=== PATIENT | male | born 1980 | race Hispanic/Latino ===

== ENCOUNTER 2023-07-24 10:33 | Inpatient (IN) | payer OTHER ==
[2023-07-24] MEDS ORDERED: FAMOTIDINE 20 MG/2 ML VIAL IV ONE (11:42)
[2023-07-24] MEDS ORDERED: NA CHLORIDE 0.9% 1,000 ML ONE (11:42)
[2023-07-24] MEDS ORDERED: ONDANSETRON 4 MG/2 ML VIAL ONE (11:42)
[2023-07-24 11:55] LABS: Albumin 4.1 g/dL (3.4-5.0); Bilirubin Total 1.2 mg/dL (0.2-1.0); Potassium 3.6 mEq/L (3.5-5.1); Protein, Total 8.6 g/dL (6.4-8.2)
[2023-07-24 12:24] LABS: Absolute Lymphocytes (CBC) 1.3 K/uL (0.7-4.9); Hematocrit 47.3 % (39.6-49.0); Lymphocytes % 11.3 % (15.3-44.8); MCV 86.2 fL (80-100); MPV 10.9 fL (7.6-11.3); RBC Red Blood Cell Count 5.49 M/uL (4.33-5.43)
--- NOTE | 2023-07-24 12:47 | RAD REPORT ---
EXAM DESCRIPTION: CT - Abdomen Pelvis W Contrast - 07/24/2023 12:06 pm CLINICAL HISTORY: ABD PAIN COMPARISON: No comparisons TECHNIQUE: Thin cut axial CT imaging of the abdomen and pelvis was performed following intravenous a dministration of 75 mL Isovue 300. Multiplanar reformats were generated and reviewed. All CT scans are performed using dose optimization technique as appropriate and may include automated exposure control or mA/KV adjustment according to patient size. FINDINGS: No suspicious findings in the lung bases. The liver, spleen, adrenal glands, and pancreas show no suspicious findings. Gallbladder and biliary tree are also without suspicious finding. Symmetric renal function is seen with no hydronephrosis or suspicious renal mass. Long segments of fluid-filled mildly distended small bowel loops throughout the central and lower abd omen. Some short segments of small bowel demonstrate mild mucosal hyperenhancement and minimal thicke fernanda, particularly along the distal ileum. The terminal ileum is not distended, but also demonstrates mild mucosal hyperenhancement. There is smooth tapering of the dilated segments with no clear transi tion point. Fluid filling of the colon is also noted. No free air, free fluid or inflammatory strandi ng. No hernia, mass or bulky lymphadenopathy. The urinary bladder is decompressed limiting evaluation . No suspicious bony findings. IMPRESSION: Fluid filling throughout small and large bowel loops with mild distention and segmental mild mucosal hyperenhancement and wall prominence of the small bowel. Findings suggest infectious/inf lammatory enterocolitis.
[2023-07-24 13:15] LABS: Platelets 31 thou/uL (152-406)
[2023-07-24 13:16] LABS: Blood Morphology Comment NOT SEEN (NOT SEEN); Platelet Estimate DECR; White Blood Cell Scan OK (OK)
[2023-07-24] MEDS ORDERED: METRONIDAZOLE 500mg IVPB 500 MG/100 ML BAG IV ONE (13:19)
[2023-07-24] MEDS ORDERED: CEFTRIAXONE 1000 MG/VIAL ONE (13:19)
--- NOTE | 2023-07-24 13:44 | EDPHYS ---
Physician Documentation [facility] Name: Lucas Yates Age: 42 yrs Sex: Male : 1980 Arrival Date: 07/24/2023 Time: 10:33 Bed 3 Private MD: ED Physician Tabby Mcginnis HPI: 07/24 12:54 This 42 yrs old Male presents to ER via Ambulatory with complaints of Diarrhea ci - NAUSEA. 12:54 Patient is a 42-year-old male PMH thrombocytopenia who presents to the ED with chief ci complaint of generalized abdominal pain, nausea, vomiting and diarrhea that began last night. Patient reports he ate hot dogs at [facility] a few days ago and thinks he has food poisoning. Reports whatever he eats comes right through him. He has had multiple episodes of liquid stools, no hematochezia or melena. He has been nauseated but no vomiting. Denies fever, chills, abdominal surgeries. Denies EtOH, denies recreational drugs.. Historical: - Allergies: 10:45 No Known Allergies; hb - Home Meds: 10:45 None [Active]; hb - PMHx: 10:45 None; hb - PSHx: 10:45 Knee - Right; hb - Immunization history:: Adult Immunizations up to date. - Social history:: Smoking status: Patient denies any tobacco usage or history of. ROS: 12:54 Cardiovascular: Negative for chest pain, edema, palpitations, ci 12:54 Respiratory: Negative for cough, shortness of breath, sputum production, wheezing, 12:54 Abdomen/GI: Positive for abdominal pain, nausea, vomiting, and diarrhea, abdominal cramps, Negative for hematemesis, black/tarry stool, rectal pain, Exam: 12:56 Constitutional: This is a well developed, well nourished patient who is awake, alert, ci and in no acute distress. Head/Face: Normocephalic, atraumatic. Eyes: Pupils equal round and reactive to light, extra-ocular motions intact. Lids and lashes normal. Conjunctiva and sclera are non-icteric and not injected. Cornea within normal limits. Periorbital areas with no swelling, redness, or edema. ENT: Nares patent. No nasal discharge, no septal abnormalities noted. Tympanic membranes are normal and external auditory canals are clear. Oropharynx with no redness, swelling, or masses, exudates, or evidence of obstruction, uvula midline. Mucous membranes moist. Neck: Trachea midline, no thyromegaly or masses palpated, and no cervical lymphadenopathy. Supple, full range of motion without nuchal rigidity, or vertebral point tenderness. No Meningismus. Chest/axilla: Normal chest wall appearance and motion. Nontender with no deformity. No lesions are appreciated. Cardiovascular: Regular rate and rhythm with a normal S1 and S2. No gallops, murmurs, or rubs. Normal PMI, no JVD. No pulse deficits. Respiratory: Lungs have equal breath sounds bilaterally, clear to auscultation and percussion. No rales, rhonchi or wheezes noted. No increased work of breathing, no retractions or nasal flaring. 12:56 Back: No spinal tenderness. No costovertebral tenderness. Full range of motion. Skin: Warm, dry with normal turgor. Normal color with no rashes, no lesions, and no evidence of cellulitis. MS/ Extremity: Pulses equal, no cyanosis. Neurovascular intact. Full, normal range of motion. Neuro: Awake and alert, GCS 15, oriented to person, place, time, and situation. Cranial nerves II-XII grossly intact. Motor strength 5/5 in all extremities. Sensory grossly intact. Cerebellar exam normal. Normal gait. Psych: Awake, alert, with orientation to person, place and time. Behavior, mood, and affect are within normal limits. 12:56 Abdomen/GI: Inspection: Bowel sounds: Palpation: soft, moderate abdominal tenderness, in all quadrants, rebound tenderness, is not appreciated, voluntary guarding, involuntary guarding, no appreciated organomegaly, Vital Signs: 10:44 BP 127 / 91; Pulse 129; Resp 16; Temp 98.5(TE); Pulse Ox 98% on R/A; Weight 87.09 kg; hb Height 5 ft. 7 in. ; Pain 8/10; 11:35 BP 119 / 73; Pulse 106; Resp 16; Pulse Ox 97% on R/A; Pain 0/10; tm6 12:31 BP 127 / 85; Pulse 100; Pulse Ox 100% on R/A; tm6 10:44 Body Mass Index 30.07 (87.09 kg, 170.18 cm) hb 10:44 Pain Scale: Adult hb 11:35 Pain Scale: Adult tm6 MDM: 10:57 Patient medically screened. ci 12:56 Differential diagnosis: Nonspecific abd pain, gastritis, pancreatitis, diverticulitis, ci viral gastroenteritis. Data reviewed: vital signs, nurses notes. 13:39 ED course: Labs remarkable for ROSA ISELA with creatinine of 2, unknown baseline, patient ci denies history of kidney disease. Patient reports a history of thrombocytopenia, lab reports his platelets have been clumping, repeat CBC pending. CT abdomen concerning for colitis, will start on Rocephin and Flagyl. Discussed case with hospitalist who accepted patient for admission.. 07/24 11:16 Order name: CBC with Diff; Complete Time: 13:36 ci 07/24 12:58 Interpretation: WBC 11.40. ci 07/24 11:16 Order name: CMP; Complete Time: 12:06 ci 07/24 12:59 Interpretation: Abnormal: CRE 2.09; NA 133. ci 07/24 11:16 Order name: Lipase; Complete Time: 12:06 ci 07/24 12:06 Interpretation: Within normal limits. ci 07/24 12:29 Order name: CBC Smear Scan; Complete Time: 13:36 EDMS 07/24 13:40 Order name: PT-INR; Complete Time: 15:00 la1 07/24 11:16 Order name: CT Abd/Pelvis - IV Contrast Only; Complete Time: 12:58 ci 07/24 12:59 Interpretation: Abnormal: Per Radiologist's finding(s): IMPRESSION: Fluid filling ci throughout small and large bowel loops with mild distention and segmental mild mucosal hyperenhancement and wall prominence of the small bowel. Findings suggest infectious/inflammatory enterocolitis. 07/24 11:16 Order name: IV Saline Lock; Complete Time: 11:34 ci 07/24 11:16 Order name: Labs collected and sent; Complete Time: 11:34 ci 07/24 11:46 Order name: Labs - recollect needed: recollect cbc / big clot in tube/ per Mi; eb Complete Time: 12:19 07/24 12:45 Order name: Labs - recollect needed: recollect blue and lavender/ on heel warmer per eb Mi to verify findings; Complete Time: 13:14 Administered Medications: 11:34 Drug: NS 0.9% IV 1000 ml IV at 1 bolus Per protocol; 1000 mL bolus Route: IV; Rate: 1 tm6 bolus; Site: right forearm; 11:34 Drug: Famotidine IVP 20 mg IVP once; dilute with 10 mL 0.9% NaCl; give over 2 minutes tm6 Route: IVP; Site: right forearm; 11:34 Drug: Ondansetron IVP 4 mg IVP once; over 2 minutes Route: IVP; Site: right forearm; tm6 13:14 Drug: Rocephin IV 1 grams IV at calculated rate once; Given slow IV push per pharmacy tm6 instructions Route: IV; Rate: calculated rate; Site: right forearm; 13:14 Drug: metroNIDAZOLE IVPB 500 mg 100 ml IVPB at 200 ml/hr once over 30 mins Volume: 100 tm6 ml; Route: IVPB; Rate: 200 ml/hr; Infused Over: 30 mins; Site: right forearm; Disposition Summary: 07/24/23 13:43 Hospitalization Ordered Notes: Hospitalization Status: Inpatient Admission ci Provider: Ash Weathers [facility] ci Condition: Stable ci Problem: new ci Symptoms: are unchanged ci Bed/Room Type: Standard ci Room Assignment: 412(07/24/23 14:12) eb Diagnosis - Acute kidney failure, unspecified ci - Other microscopic colitis ci Forms: - Medication Reconciliation Form ci - SBAR form ci - Leadership Thank You Letter ci Signatures: Dispatcher [employer] EDMS Jamar Garcia, RADHA-C APPEALS [id number]-[id number] Karishma Kaye RN RN Renetta Johnson Tabby Mcginnis Elsie Machuca RN RN tm6 Corrections: (The following items were deleted from the chart) 12:59 12:06 Abnormal: CRE 2.09. ci ci 13:36 12:54 Patient is a 42-year-old male who presents to the ED with chief complaint of ci generalized abdominal pain, nausea, vomiting and diarrhea that began last night. Patient reports he ate hot dogs at [facility] a few days ago and thinks he has food poisoning. Reports whatever he eats comes right through him. He has had multiple episodes of liquid stools, no hematochezia or melena. He has been nauseated but no vomiting. Denies fever, chills, abdominal surgeries. Positive EtOH use.. ci 14:12 13:43 ci eb
--- NOTE | 2023-07-24 13:44 | ER ---
Nurse's Notes [facility] Name: Lucas Yates Age: 42 yrs Sex: Male : 1980 Arrival Date: 07/24/2023 Time: 10:33 Bed 3 Private MD: Diagnosis: Acute kidney failure, unspecified;Other microscopic colitis Presentation: 07/24 10:44 Chief complaint: Diffuse abdominal pain and N/d x 3 days. Coronavirus screen: At this hb time, the client does not indicate any symptoms associated with coronavirus-19. Ebola Screen: No symptoms or risks identified at this time. Initial Sepsis Screen: Does the patient meet any 2 criteria? HR > 90 bpm. No. Patient's initial sepsis screen is negative. Does the patient have a suspected source of infection? No. Patient's initial sepsis screen is negative. Risk Assessment: Do you want to hurt yourself or someone else? Patient reports no desire to harm self or others. Onset of symptoms was July 22, 2023. 10:44 Method Of Arrival: Ambulatory hb 10:44 Acuity: JIL 3 hb Historical: - Allergies: 10:45 No Known Allergies; hb - Home Meds: 10:45 None [Active]; hb - PMHx: 10:45 None; hb - PSHx: 10:45 Knee - Right; hb - Immunization history:: Adult Immunizations up to date. - Social history:: Smoking status: Patient denies any tobacco usage or history of. Screenin:[address] [facility] ED Fall Risk Assessment (Adult) History of falling in the last 3 months, tm6 including since admission No falls in past 3 months (0 pts). Abuse screen: Denies threats or abuse. Denies injuries from another. Nutritional screening: No deficits noted. Tuberculosis screening: No symptoms or risk factors identified. Assessment: 11:35 General: Appears in no apparent distress. Behavior is calm, cooperative. Pain: tm6 Complains of pain in abdomen. Neuro: Level of Consciousness is awake, alert, obeys commands, Oriented to person, place, time, situation. Cardiovascular: Capillary refill < 3 seconds Patient's skin is warm and dry. Respiratory: Airway is patent Respiratory effort is even, unlabored, Respiratory pattern is regular, symmetrical. GI: Abdomen is flat, non-distended, Reports diarrhea, nausea. : No signs and/or symptoms were reported regarding the genitourinary system. EENT: No signs and/or symptoms were reported regarding the EENT system. Derm: No signs and/or symptoms reported regarding the dermatologic system. Musculoskeletal: No signs and/or symptoms reported regarding the musculoskeletal system. 12:32 Reassessment: Patient appears in no apparent distress at this time. No changes from tm6 previously documented assessment. Patient and/or family updated on plan of care and expected duration. Pain level reassessed. Patient is alert, oriented x 3, equal unlabored respirations, skin warm/dry/pink. Vital Signs: 10:44 BP 127 / 91; Pulse 129; Resp 16; Temp 98.5(TE); Pulse Ox 98% on R/A; Weight 87.09 kg; hb Height 5 ft. 7 in. ; Pain 8/10; 11:35 BP 119 / 73; Pulse 106; Resp 16; Pulse Ox 97% on R/A; Pain 0/10; tm6 12:31 BP 127 / 85; Pulse 100; Pulse Ox 100% on R/A; tm6 10:44 Body Mass Index 30.07 (87.09 kg, 170.18 cm) hb 10:44 Pain Scale: Adult hb 11:35 Pain Scale: Adult tm6 ED Course: 10:37 Patient arrived in ED. mg5 10:45 Triage completed. hb 10:46 Arm band placed on. hb 10:57 Tabby Mcginnis is Attending Physician. ci 11:08 Anastasiya Acevedo, RN is Primary Nurse. ko1 11:35 Patient has correct armband on for positive identification. Bed in low position. Call tm6 light in reach. Provided Education on: medications. Client placed on continuous cardiac and pulse oximetry monitoring. NIBP monitoring applied. Door closed. Noise minimized. Lights dimmed. Warm blanket given. 11:35 No provider procedures requiring assistance completed. Inserted saline lock: 20 gauge tm6 in right forearm, using aseptic technique. 12:08 CT Abd/Pelvis - IV Contrast Only In Process Unspecified. EDMS 13:40 Ash Weathers MD is Hospitalizing Provider. ci 16:49 Patient admitted, IV remains in place. tm6 Administered Medications: 11:34 Drug: NS 0.9% IV 1000 ml IV at 1 bolus Per protocol; 1000 mL bolus Route: IV; Rate: 1 tm6 bolus; Site: right forearm; 11:34 Drug: Famotidine IVP 20 mg IVP once; dilute with 10 mL 0.9% NaCl; give over 2 minutes tm6 Route: IVP; Site: right forearm; 11:34 Drug: Ondansetron IVP 4 mg IVP once; over 2 minutes Route: IVP; Site: right forearm; tm6 13:14 Drug: Rocephin IV 1 grams IV at calculated rate once; Given slow IV push per pharmacy tm6 instructions Route: IV; Rate: calculated rate; Site: right forearm; 13:14 Drug: metroNIDAZOLE IVPB 500 mg 100 ml IVPB at 200 ml/hr once over 30 mins Volume: 100 tm6 ml; Route: IVPB; Rate: 200 ml/hr; Infused Over: 30 mins; Site: right forearm; Medication: 11:35 VIS not applicable for this client. tm6 Outcome: 13:43 Decision to Hospitalize by Provider. ci 16:48 Admitted to Med/surg accompanied by tech, via wheelchair, room 412, Report called to tm6 YUMI Ponce 16:48 Condition: stable 16:48 Instructed on the need for admit, 16:51 Patient left the ED. tm6 Signatures: Dispatcher [employer] EDMS Karishma Kaye RN RN hb Oliver, Kathy, RN RN ko1 Shawnee Bryan mg5 Tabby Mcginnis Tawney, RN RN tm6
[2023-07-24 14:40] LABS: Protime INR 1.42
--- NOTE | 2023-07-24 15:35 | P.HP ---
Certification for Inpatient Patient admitted to: Inpatient With expected LOS: >2 Midnights Patient will require the following post-hospital care: None Practitioner: I am a practitioner with admitting privileges, knowledge of patient current condition, hospital course, and medical plan of care. Services: Services provided to patient in accordance with Admission requirements found in Title 42 Section 412.3 of the Code of Federal Regulations Patient History Date of Service: 07/24/23 Reason for admission: Enterocolitis, ROSA ISELA History of Present Illness: 42-year-old male with no known medical history aside from "long bleeding time" presents emergency department chief complaint of abdominal pain, diarrhea. He reports that on Wednesday he ate at a restaurant serving hotdogs, on he developed frequent diarrhea 6-7 episodes per day for the last 3 days. He has been experiencing nausea as well but not had any vomiting. He was evaluated in the emergency department his labs are significant for a white blood cell count of 11.4 platelet count of 31 INR 1.42 sodium 133 bicarb 28 creatinine 2.09 GFR 40 glucose 144 T. bili 1.2 AST [address] abdomen pelvis without contrast was performed which revealed fluid filling throughout small and large bowel loops with mild distention and segmental mild mucosal hyperenhancement and wall prominence of small bowel. Findings suggest infectious/inflammatory enterocolitis. Patient reports when he had his ACL repair in 2018 or 2019 he was referred to hematology for abnormal coagulation studies. He cannot recall what diagnosis he was given but he was told there was no much he can do about it he should avoid getting any injuries or cuts is much as possible. Allergies No Known Allergies Allergy (Unverified 07/24/23 15:00) - Past Medical/Surgical History -: None -: ACL repair Psychosocial/ Personal History: Works at [employer], lives at home with his and children - Family History Family History: Reviewed- Non-Contributory - Social History Smoking Status: Never smoker Alcohol use: No CD- Drugs: No Caffeine use: Yes Place of Residence: Home Review of Systems 10-point ROS is otherwise unremarkable Gastrointestinal: Abdominal Pain, Diarrhea Physical Examination - Physical Exam General: Alert, In no apparent distress, Oriented x3 HEENT: Atraumatic, PERRLA, EOMI Neck: Supple, 2+ carotid pulse no bruit, No LAD Respiratory: Clear to auscultation bilaterally, Normal air movement Cardiovascular: Regular rate/rhythm, Normal S1 S2 Gastrointestinal: Hyperactive, Tenderness (Mild generalized abdominal tenderness) Musculoskeletal: No tenderness Integumentary: No rashes Neurological: Normal speech, Normal strength at 5/5 x4 extr, Normal tone - Studies Laboratory Data (last 24 hrs) 07/24/23 07/24/23 07/24/23 14:20 12:14 11:25 WBC 11.40 H Hgb 16.2 Hct 47.3 Plt Count 31 L PT 15.5 H INR 1.42 Sodium 133 L Potassium 3.6 BUN 22 H Creatinine 2.09 H Glucose 144 H Total Bilirubin 1.2 H AST 15 ALT 24 Alkaline Phosphatase 80 Lipase 18 Assessment and Plan - Plan Assessment: Abdominal tenderness, diarrhea secondary to enterocolitis Acute kidney injury Thrombocytopenia Plan: Abdominal tenderness, diarrhea secondary to enterocolitis Continue aggressive IV fluids, clear liquid diet, Cipro/Flagyl Stool studies ordered Reports started after having a hot dog on 07/21 Advance diet as tolerated Acute kidney injury Likely prerenal, continue IV fluids Recheck chemistry in the morning Nephrology consult as needed for worsening No hydronephrosis noted on CT Thrombocytopenia Unclear etiology Not a heavy drinker, no known history of cirrhosis LFTs within normal limits, no sign of cirrhosis on CT Reports history of abnormal blood clotting in 2019 or 2019 Seen by hematology at that time who instructed him to be cautious about cuts or injuries Monitor platelet count daily, no signs of active bleeding Recommend hematology follow-up at discharge DVT PPX: SCDs given thrombocytopenia Code status: Full code Discharge Plan: Home Plan to discharge in: 48 Hours - Advance Directives Does patient have a Living Will: No Does patient have a Durable POA for Healthcare: No - Code Status/Comfort Care Code Status Assessed: Yes (Full code) Critical Care: No
[2023-07-24 16:58] VITALS: BMI 28.5
[2023-07-24] MEDS ORDERED: ONDANSETRON 4 MG/2 ML VIAL IV PRN (16:58)
[2023-07-24] MEDS: NA CHLORIDE 0.9% 1,000 ML IV SCH (18:27)
[2023-07-24] MEDS: METRONIDAZOLE 500mg IVPB 500 MG/100 ML BAG IV SCH (18:27)
[2023-07-24] MEDS: CIPROFLOXACIN 400mg IV 400 MG/200 ML BAG IV SCH (21:15)
[2023-07-25] MEDS: METRONIDAZOLE 500mg IVPB 500 MG/100 ML BAG IV SCH ×3 (00:37→16:11)
[2023-07-25] MEDS: NA CHLORIDE 0.9% 1,000 ML IV SCH ×5 (00:38→19:55)
[2023-07-25 07:15] LABS: C.diff Antigen/Toxin Ag neg : Tox neg (NEG : NEG)
[2023-07-25 07:24] LABS: Absolute Lymphocytes (CBC) 2.4 K/uL (0.7-4.9); Hematocrit 41.9 % (39.6-49.0); Lymphocytes % 30.2 % (15.3-44.8); MPV 9.6 fL (7.6-11.3); RBC Red Blood Cell Count 4.93 M/uL (4.33-5.43)
[2023-07-25] MEDS: CIPROFLOXACIN 400mg IV 400 MG/200 ML BAG IV SCH ×2 (07:45→19:55)
[2023-07-25 07:49] LABS: Protime INR 1.35
[2023-07-25 07:50] LABS: Albumin 2.9 g/dL (3.4-5.0); Bilirubin Total 0.6 mg/dL (0.2-1.0); Potassium 3.3 mEq/L (3.5-5.1); Protein, Total 6.7 g/dL (6.4-8.2); Thyroid Stimulating Hormone 1.25 uIU/mL (0.358-3.740)
[2023-07-25 08:02] LABS: Dohle Bodies PRESENT; Platelet Estimate DECR
[2023-07-25 08:03] LABS: Blood Morphology Comment NOT SEEN (NOT SEEN)
[2023-07-25 08:06] LABS: Platelets 15 thou/uL (152-406)
[2023-07-25 09:10] VITALS: O2SAT 98
--- NOTE | 2023-07-25 09:41 | P.PN ---
Date of Service: 07/25/23 Subjective: Reports less abdominal pain overnight Had 5 episodes of diarrhea in the last 12 hours Stool is now brown in color and soft Denies any melena, signs of bleeding ROS: 10 point ROS as noted above, otherwise negative Physical exam GEN: Alert, oriented, NAD HEENT: Normal conjunctiva, sclera anicteric CV: Regular rate and rhythm, no edema Pulm: Nonlabored respirations on room air ABD: Soft, nontender, nondistended MSK: No joint tenderness Integumentary: No rashes Neuro: Normal speech, normal affect Vitals reviewed Assessment: Abdominal tenderness, diarrhea secondary to enterocolitis Acute kidney injury Thrombocytopenia Plan: Abdominal tenderness, diarrhea secondary to enterocolitis Continue aggressive IV fluids, tolerating diet, increase to regular Stool studies ordered and pending Reports started after having a beef hot dog on 07/21 White blood cell count improving Continues to have diarrhea Acute kidney injury Likely prerenal, continue IV fluids Improved overnight Recheck chemistry in the morning No hydronephrosis noted on CT Thrombocytopenia Unclear etiology Reports monthly CBC with testosterone clinic Platelets had been around 97 the past few months In June patient had influenza and took Tamiflu, ibuprofen and acetaminophen, and a cough medication Tamiflu, ibuprofen and acetaminophen have been implicated in a slight thrombocytopenia No signs of bleeding at this time, monitor platelet count daily Obtain fibrinogen, PTT, PT/INR Also ordered slides for path review Not a heavy drinker, no known history of cirrhosis LFTs within normal limits, no sign of cirrhosis on CT Reports history of abnormal blood clotting in 2019 or 2019 Seen by hematology at that time who instructed him to be cautious about cuts or injuries Recommend hematology follow-up at discharge VTE: SCD given thrombocytopenia Code: Full Dispo: 48 hours Time Spent Managing Pts Care (In Minutes): 35
[2023-07-25] MEDS ORDERED: POTASSIUM CL SA 10 MEQ TAB PO ONE ×2 (11:08→18:24)
[2023-07-25 16:21] LABS: Hematocrit 41.5 % (39.6-49.0); MCV 85.5 fL (80-100); MPV 9.7 fL (7.6-11.3); RBC Red Blood Cell Count 4.85 M/uL (4.33-5.43)
[2023-07-25 16:58] LABS: Blood Morphology Comment NOT SEEN (NOT SEEN); Platelet Estimate DECR; White Blood Cell Scan OK (OK)
[2023-07-25 17:01] LABS: Platelets 17 thou/uL (152-406)
[2023-07-26] MEDS: METRONIDAZOLE 500mg IVPB 500 MG/100 ML BAG IV SCH ×2 (00:47→08:26)
[2023-07-26] MEDS: NA CHLORIDE 0.9% 1,000 ML IV SCH ×2 (03:17→08:26)
[2023-07-26 06:19] LABS: Protime INR 1.23
[2023-07-26 06:21] LABS: Absolute Lymphocytes (CBC) 2.8 K/uL (0.7-4.9); Hematocrit 39.6 % (39.6-49.0); Lymphocytes % 34.4 % (15.3-44.8); MCV 85.1 fL (80-100); MPV 9.9 fL (7.6-11.3); Platelets 16 thou/uL (152-406); RBC Red Blood Cell Count 4.65 M/uL (4.33-5.43)
[2023-07-26 06:26] LABS: Albumin 2.7 g/dL (3.4-5.0); Bilirubin Total 0.4 mg/dL (0.2-1.0); Potassium 3.8 mEq/L (3.5-5.1); Protein, Total 6.1 g/dL (6.4-8.2)
[2023-07-26 08:26] LABS: Blood Morphology Comment NOT SEEN (NOT SEEN); Platelet Estimate DECR; White Blood Cell Scan OK (OK)
[2023-07-26] MEDS: CIPROFLOXACIN 400mg IV 400 MG/200 ML BAG IV SCH (08:26)
[2023-07-26] MEDS ORDERED: POTASSIUM CL SA 10 MEQ TAB PO ONE (09:00)
--- NOTE | 2023-07-26 14:39 | P.DS ---
Admission Date: 07/24/23 Discharge Date: 07/26/23 Disposition: ROUTINE DISCHARGE Discharge Condition: GOOD Reason for Admission: Enterocolitis, ROSA ISELA Brief History of Present Illness: 42-year-old male with no known medical history aside from "long bleeding time" presents emergency department chief complaint of abdominal pain, diarrhea. He reports that on Wednesday he ate at a restaurant serving hotdogs, on he developed frequent diarrhea 6-7 episodes per day for the last 3 days. He has been experiencing nausea as well but not had any vomiting. He was evaluated in the emergency department his labs are significant for a white blood cell count of 11.4 platelet count of 31 INR 1.42 sodium 133 bicarb 28 creatinine 2.09 GFR 40 glucose 144 T. bili 1.2 AST [address] abdomen pelvis without contrast was performed which revealed fluid filling throughout small and large bowel loops with mild distention and segmental mild mucosal hyperenhancement and wall prominence of small bowel. Findings suggest infectious/inflammatory enterocolitis. Patient reports when he had his ACL repair in 2018 or 2019 he was referred to hematology for abnormal coagulation studies. He cannot recall what diagnosis he was given but he was told there was no much he can do about it he should avoid getting any injuries or cuts is much as possible. Hospital Course: Problem list Abdominal tenderness, diarrhea secondary to enterocolitis Acute kidney injury Thrombocytopenia Patient was admitted to the hospital for diarrhea, enterocolitis and was found to have significant thrombocytopenia initial platelet count was 31 and trended down to the teens 15, 16, 17. After obtaining further history it was revealed that patient was previously diagnosed with lupus anticoagulant syndrome but did not previously have low platelet counts. He did recently complete a course of Tamiflu as well as ibuprofen and Tylenol which could also contributed to his low platelet counts. Case was discussed with hematology who recommended repeat CBC in 1 week, initiation of steroids if platelet count is less than 10. It is also important that patient set up an appointment with human resources advisor for further evaluation of his lupus anticoagulant syndrome. Discussed not having further testosterone injections until cleared by rheumatology in regards to thrombocytopenia. He will be discharged with a prescription for Cipro, Flagyl for his enterocolitis Patient is to have repeat CBC performed within 1 week If platelets are less than 10 this would warrant treatment with steroids Patient to establish himself with a primary care doctor in the area as well as a human resources advisor Vital Signs/Physical Exam: Temp Pulse Resp BP Pulse Ox 97.5 F 83 14 119/76 98 07/26/23 12:00 07/26/23 12:00 07/26/23 12:00 07/26/23 12:00 07/26/23 12:00 General: Alert, In no apparent distress, Oriented x3 HEENT: Atraumatic, PERRLA, EOMI Neck: Supple, JVD not distended Respiratory: Clear to auscultation bilaterally, Normal air movement Cardiovascular: Regular rate/rhythm, Normal S1 S2 Gastrointestinal: Normal bowel sounds, No tenderness Musculoskeletal: No tenderness Integumentary: No rashes Neurological: Normal speech, Normal tone, Normal affect Lymphatics: No axilla or inguinal lymphadenopathy Laboratory Data at Discharge: WBC 8.20 thou/uL (4.3-10.9) 07/26/23 05:25 Hgb 13.4 g/dL (13.6-17.9) L 07/26/23 05:25 Hct 39.6 % (39.6-49.0) 07/26/23 05:25 Plt Count 16 thou/uL (152-406) L 07/26/23 05:25 PT 13.4 SECONDS (9.5-12.5) H 07/26/23 05:25 INR 1.23 07/26/23 05:25 APTT 50.4 SECONDS (24.3-36.9) H 07/26/23 05:25 Sodium 140 mEq/L (136-145) 07/26/23 05:25 Potassium 3.8 mEq/L (3.5-5.1) 07/26/23 05:25 BUN 11 mg/dL (7-18) 07/26/23 05:25 Creatinine 1.03 mg/dL (0.70-1.30) 07/26/23 05:25 Glucose 100 mg/dL (74-106) 07/26/23 05:25 Total Bilirubin 0.4 mg/dL (0.2-1.0) 07/26/23 05:25 AST 9 U/L (15-37) L 07/26/23 05:25 ALT 17 U/L (16-61) 07/26/23 05:25 Alkaline Phosphatase 60 U/L (45-117) 12/11/23 05:25 Lipase 18 U/L (13-75) 07/24/23 11:25 Home Medications: Ciprofloxacin HCl 500 mg PO BID 5 Days #10 cap 07/26/23 metroNIDAZOLE [Flagyl] 500 mg PO Q8H 5 Days #15 cap 07/26/23 New Medications: Ciprofloxacin HCl 500 mg PO BID 5 Days #10 cap metroNIDAZOLE [Flagyl] 500 mg PO Q8H 5 Days #15 cap Physician Discharge Instructions: Patient was admitted to the hospital for diarrhea, enterocolitis and was found to have significant thrombocytopenia initial platelet count was 31 and trended down to the teens 15, 16, 17. After obtaining further history it was revealed that patient was previously diagnosed with lupus anticoagulant syndrome but did not previously have low platelet counts. He did recently complete a course of Tamiflu as well as ibuprofen and Tylenol which could also contributed to his low platelet counts. Case was discussed with hematology who recommended repeat CBC in 1 week, initiation of steroids if platelet count is less than 10. It is also important that patient set up an appointment with human resources advisor for further evaluation of his lupus anticoagulant syndrome. Discussed not having further testosterone injections until cleared by rheumatology in regards to thrombocytopenia. He will be discharged with a prescription for Cipro, Flagyl for his enterocolitis Patient is to have repeat CBC performed within 1 week If platelets are less than 10 this would warrant treatment with steroids Patient to establish himself with a primary care doctor in the area as well as a human resources advisor Diet: Rusk Activity: Ad jaun Followup: NONE,NONE [Primary Care Provider] - 1 Week Time spent managing pt's care (in minutes): 35
[2023-07-26 17:16] VITALS: BP 138/83; TEMP 97.6
== END 2023-07-26 17:37 | disposition home or self-care (01) | DRG 684 ==
LOC: ER 10:33 → 4TH 15:12
PROVIDERS: ADMIT Hospitalist; ATTEND Hospitalist
DX: N17.9 Acute kidney failure, unspecified (principal); K52.839 Microscopic colitis, unspecified; D69.6 Thrombocytopenia, unspecified; Z79.899 Other long term (current) drug therapy
CPT/HCPCS: 36415; 74177; 80053; 82705; 83615; 83631; 83690; 84132; 84439; 84443; 85025; 85027; 85384; 85610; 85730; 87045; 87046; 87177; 87209; 87324; 89055; 96374; 96375; 99285; J0696; J0744; J2405; J7030; Q9967